=== PATIENT | female | born 1955 | race Caucasian/White ===

== ENCOUNTER → 2017-02-07 | Outpatient (CLI) | payer BC, MEDICAID ==
--- NOTE | 2017-02-07 12:14 | US ---
EXAMINATION TYPE: US pelvis complete transvag DATE OF EXAM: 02/07/2017 COMPARISON: NONE CLINICAL HISTORY: D25.9 I80.9 Phlebitis and thrombophlebitis of unsp. Pain. Difficult/limited exam du e to large amount of peristalsing bowel TECHNIQUE: Transvaginal (TV) and Transabdominal (TA) Date of LMP: 2012 EXAM MEASUREMENTS: Uterus: 5.1 x 2.7 x 3.1 cm Endometrial Stripe: 0.2 cm Right Ovary: 1.8 x 1.2 x 1.2 cm Left Ovary: Not visualized on this exam 1. Uterus: Anteverted Nabothian cyst visualized in cervix 2. Endometrium: wnl 3. Right Ovary: wnl as visualized, difficult visualization due to bowel 4. Left Ovary: Not visualized due to bowel 5. Bilateral Adnexa: Prominent vessels visualized bilaterally 6. Posterior cul-de-sac: wnl IMPRESSION: 1. Endometrium and endometrial thickness are within normal limits. 2. Unremarkable right ovary. 3. Nonvisualization of the left ovary due to overlying bowel gas.
== END | disposition home or self-care (01) ==
LOC: RADUSWWP 10:38
PROVIDERS: ATTEND Obstetrics & Gynecology Gynecology
DX: D25.9 Leiomyoma of uterus, unspecified (principal)
CPT/HCPCS: 76830; 76856

== ENCOUNTER → 2017-02-07 | Outpatient (CLI) | payer MEDICAID ==
--- NOTE | 2017-02-08 11:22 | MM ---
Reason for exam: screening (asymptomatic). Last mammogram was performed 1 year ago. History: Patient is postmenopausal. Silicone gel implants in both breasts, 2013. Benign stereotactic core biopsy. Physical Findings: A clinical breast exam by your physician is recommended on an annual basis and results should be correlated with mammographic findings. MG Screening Mammo Implant/CAD Bilateral CC, MLO, and ID view(s) were taken. Prior study comparison: February 01, 2016, left breast MG work up mamm w CAD LT. December 28, 2015, bilateral MG screening mammo implant/CAD. There are scattered fibroglandular densities. No suspicious abnormality. No significant changes when compared with prior studies. ASSESSMENT: Negative, BI-RAD 1 RECOMMENDATION: Routine screening mammogram of both breasts in 1 year.
== END | disposition home or self-care (01) ==
LOC: RADMAMWWP 10:30
PROVIDERS: ATTEND Obstetrics & Gynecology Gynecology
DX: Z12.31 Encounter for screening mammogram for malignant neoplasm of breast (principal)

== ENCOUNTER → 2018-02-28 | Outpatient (CLI) | payer OTHER ==
[2018-02-28 11:47] LABS: Basophils # (A) 0.1 k/uL (0-0.2); Basophils % (A) 1 %; Eosinophils # (A) 0.2 k/uL (0-0.7); Eosinophils % (A) 2 %; HCT 44.9 % (34.0-46.0); HGB 14.7 gm/dL (11.4-16.0); Lymphocytes % (A) 11 %; MCH 33.4 pg (25.0-35.0); MCHC 32.7 g/dL (31.0-37.0); MCV 102.3 fL (80.0-100.0); Macrocytosis Slight; Mean Platelet Volume 7.5; Monocytes # (A) 0.6 k/uL (0-1.0); Monocytes % (A) 6 %; Neutrophils # (A) 7.2 k/uL (1.3-7.7); Neutrophils % (A) 80 %; Platelet Count 276 k/uL (150-450); RBC 4.39 m/uL (3.80-5.40); RDW 12.3 % (11.5-15.5)
[2018-02-28 12:07] LABS: ALT 27 U/L (9-52); AST 33 U/L (14-36); Albumin 4.7 g/dL (3.5-5.0); Alkaline Phosphatase 79 U/L (38-126); Anion Gap 9 mmol/L; Blood Urea Nitrogen 16 mg/dL (7-17); Calcium 10.6 mg/dL (8.4-10.2); Carbon Dioxide 31 mmol/L (22-30); Chloride 100 mmol/L (98-107); Cholesterol 228 mg/dL (<200); Glucose 104 mg/dL (74-99); Potassium 5.3 mmol/L (3.5-5.1); Sodium 140 mmol/L (137-145); Total Bilirubin 0.7 mg/dL (0.2-1.3); Total Protein 8.4 g/dL (6.3-8.2); Triglycerides 60 mg/dL (<150)
[2018-02-28 12:14] LABS: LDL Cholesterol,Calculated 64 mg/dL (0-99)
[2018-02-28 12:23] LABS: HDL Cholesterol 152 mg/dL (40-60); T4, Free (Free Thyroxine) 0.83 ng/dL (0.78-2.19)
--- NOTE | 2018-02-28 14:11 | MM ---
Reason for exam: screening (asymptomatic). Last mammogram was performed 1 year and 1 month ago. History: Patient is postmenopausal. Silicone gel implants in both breasts, 2013. Benign stereotactic core biopsy. Physical Findings: A clinical breast exam by your physician is recommended on an annual basis and results should be correlated with mammographic findings. MG Screening Mammo Implant/CAD Bilateral CC and MLO view(s) were taken. Prior study comparison: February 07, 2017, bilateral MG screening mammo implant/CAD. February 01, 2016, left breast MG work up mamm w CAD LT. The breast tissue is heterogeneously dense. This may lower the sensitivity of mammography. Finding: There are large dystrophic calcifications in the upper quadrant, posterior position of the left breast. and benign round calcifications in the left breast. Previous mammotome biopsy in the left breast. There is no discrete abnormality. Subpectoral implants bilaterally. Benign left axillary lymph nodes redemonstrated. ASSESSMENT: Benign, BI-RAD 2 RECOMMENDATION: Routine screening mammogram of both breasts in 1 year.
== END | disposition home or self-care (01) ==
LOC: RADMAMWWP 10:43
PROVIDERS: ATTEND Obstetrics & Gynecology Gynecology
DX: Z12.31 Encounter for screening mammogram for malignant neoplasm of breast (principal); E78.2 Mixed hyperlipidemia; L65.9 Nonscarring hair loss, unspecified
CPT/HCPCS: 36415; 77067; 80053; 80061; 84439; 84443; 84481; 85025